=== PATIENT | female | born 1940 | race Caucasian/White ===

== ENCOUNTER → 2017-03-18 | Outpatient (CLI) | payer OTHER ==
[~2017-03-18] MED LIST: ALBUAER19 INH; ASPI81TA25 PO; ATOR-22 PO; BUDE180I INH; CALC600T37 PO; CALCTAB5 PO; FSMD/70 PO; TRAZ100T29 PO
--- NOTE | 2017-03-18 10:21 | DIAGNOSTIC IMAGING REPORT ---
DOUBLE CONTRAST UPPER GI SERIES CLINICAL HISTORY: Status post hernia repair COMPARISON STUDY: Upper GI series May 25, [address] of the abdomen and pelvis June 13, 2016. FLUOROSCOPY TIME: 2.5 minutes. FINDINGS: There are expected findings following repair of a paraesophageal hernia. Note was made of moderate reflux and mild esophageal dysmotility. No extraluminal contrast was identified. Contrast passed freely into the stomach. Irregularity at the gastroesophageal junction is postsurgical. Gastric fold pattern is unremarkable. Mucosal detail was somewhat suboptimal on this exam but unremarkable. Duodenum was normal. IMPRESSION: 1. Expected findings following repair of paraesophageal hernia. Mild irregularity at the gastroesophageal junction is postsurgical. 2. Moderate reflux and mild esophageal dysmotility. Electronically signed by: Shamir Albarado M.D. 03/18/2017 10:20 AM Dictated Date/Time: 03/18/2017 10:17 AM
== END | disposition home or self-care (01) ==
LOC: C.RAD 09:34
PROVIDERS: ATTEND Surgery
DX: Z87.19 Personal history of other diseases of the digestive system (principal); Z98.890 Other specified postprocedural states

== ENCOUNTER 2017-08-29 11:52 | Emergency (ER) | payer OTHER ==
[~2017-08-29] VITALS: Ht 152.4 cm; Wt 73.9 kg
[~2017-08-29 11:52] MED LIST changes: -CALC600T37 PO
[2017-08-29 12:12] VITALS: TEMP 36.8; Ht 152.4 cm; Wt 73.9 kg
--- NOTE | 2017-08-29 12:52 | DIAGNOSTIC IMAGING REPORT ---
R HAND MIN 3 VIEWS ROUTINE CLINICAL HISTORY: right hand pain, concerned for fracture after injury this AM trauma. Pain. COMPARISON: None. DISCUSSION: Generalized degenerative changes throughout. Mild soft tissue edema. No evidence for fracture or dislocation. Cortical margins appear intact. IMPRESSION: 1. Degenerative change. 2. Mild soft tissue edema. 3. No acute bony abnormality. The above report was generated using voice recognition software. It may contain grammatical, syntax or spelling errors. Electronically signed by: Felix Quinn M.D. 08/29/2017 12:51 PM Dictated Date/Time: 08/29/2017 12:50 PM
[2017-08-29] MEDS ORDERED: CALC600T37 PO (13:28)
--- NOTE | 2017-08-29 13:33 | EMERGENCY ROOM VISIT NOTE ---
ED Visit Note First contact with patient: 12:56 I have seen and examined this patient with Amanda Castellon and generally agree with the treatment plan as discussed. Problem List Medical Problems: (1) Asthma Status: Chronic (2) Diverticulitis of intestine with perforation Permanent Comment: 12/03/15 - s/p ex lap with sigmoid colectomy and colostomy placement Status: Chronic (3) Dyslipidemia Status: Chronic (4) GERD (gastroesophageal reflux disease) Status: Chronic (5) HTN (hypertension) Status: Chronic (6) IBS (irritable bowel syndrome) Status: Chronic Surgical Problems: (1) H/O tubal ligation Status: Chronic (2) History of colostomy reversal Permanent Comment: 04/23/16 Status: Chronic (3) S/P repair of paraesophageal hernia Status: Chronic Current/Historical Medications Scheduled Alendronate/Cholecalciferol (Fosamax+D 70MG/2800 Iu), 1 TABLET PO WK Aspirin (Aspir-Low), 81 MG PO QAM Atorvastatin (Lipitor), 20 MG PO HS Budesonide (Inhalation) (Pulmicort Flexhaler), 2 PUFFS INH QAM Calcium (Calcium), 600 MG PO DAILY Trazodone Hcl (Trazodone), 100 MG PO HS Scheduled PRN Albuterol Inhaler (Ventolin Inhaler), 2 PUFFS INH QID PRN for SOB/Wheezing Allergies Coded Allergies: No Known Allergies (Unverified , 12/03/15) Vital Signs Date Time Temp Pulse Resp B/P (MAP) Pulse Ox O2 Delivery O2 Flow Rate FiO2 08/29/17 12:12 36.8 68 16 164/79 94 Room Air Departure Information Referrals Lakshmi Evans M.D. (PCP) Patient Instructions My [facility]
--- NOTE | 2017-08-29 14:18 | EMERGENCY ROOM VISIT NOTE ---
ED Visit Note First contact with patient: 12:56 CHIEF COMPLAINT: Hand injury HISTORY OF PRESENT ILLNESS: This is a 77-year-old female who presents to the emergency department with complaint of right hand pain. She states that she was trying to reach behind a bed frame to pick something up, and bumped the side of her hand and wrist on something come she is not quite sure what caused the injury. She complains of pain, mild swelling, and bruising to the area. The pain is constant, moderate, and worse with any movement of the hand. She is concerned she may have broken something, as she reports a history of osteoporosis. She is right-hand dominant. She denies any previous injury to this hand or wrist in the past. There was no audible cracking sound at the time of the injury. REVIEW OF SYSTEMS: GENERAL: No fever or chills, easy fatigue, loss of appetite, or significant weight change. NEUROLOGICAL: No headache, change in mental status, weakness, numbness, or dizziness.. PMH: Reviewed in the chart. SOCIAL HISTORY: Patient lives at home with her . She denies tobacco use. PHYSICAL EXAM: Vital Signs: Reviewed Nurse's notes. The dorsum and ulnar aspect of the hand is mildly swollen and tender, mild ecchymosis also noted. The skin is intact. Flexion and extension of the fingers is full and strong. Strong wool puller strength. Increased pain in the hand with flexion and extension of the wrist, but no bony tenderness of the wrist. No snuffbox tenderness. Limbs up an okay sign are intact. EMERGENCY DEPARTMENT COURSE: I examined the patient. Differential diagnosis includes contusion, abrasion, hematoma, fracture. An x-ray of the hand revealed soft tissue swelling but no fractures. The patient was updated on results and reassured of no visible fractures. Given her amount of pain, she was placed in a wrist lacer splint for comfort. And she was encouraged to follow closely with her primary care provider or an orthopedic surgeon if her pain does not improve in the next few days. Patient verbalized understanding of all discharge instructions, and was discharged home in stable condition and ambulatory. Medication Reconciliation: I attest that I have personally reviewed the patient' s current medication list. Blood pressure screening: The patient was found to have an elevated blood pressure and was referred to their primary doctor for recheck and further treatment. I discussed the patient with Dr. Meredith, who also independently evaluated the patient and was in agreement with my assessment and plan. Problem List Medical Problems: (1) Asthma Status: Chronic (2) Diverticulitis of intestine with perforation Permanent Comment: 12/03/15 - s/p ex lap with sigmoid colectomy and colostomy placement Status: Chronic (3) Dyslipidemia Status: Chronic (4) GERD (gastroesophageal reflux disease) Status: Chronic (5) HTN (hypertension) Status: Chronic (6) IBS (irritable bowel syndrome) Status: Chronic Surgical Problems: (1) H/O tubal ligation Status: Chronic (2) History of colostomy reversal Permanent Comment: 04/23/16 Status: Chronic (3) S/P repair of paraesophageal hernia Status: Chronic Current/Historical Medications Scheduled Alendronate/Cholecalciferol (Fosamax+D 70MG/2800 Iu), 1 TABLET PO WK Aspirin (Aspir-Low), 81 MG PO QAM Atorvastatin (Lipitor), 20 MG PO HS Budesonide (Inhalation) (Pulmicort Flexhaler), 2 PUFFS INH QAM Calcium (Calcium), 600 MG PO DAILY Trazodone Hcl (Trazodone), 100 MG PO HS Scheduled PRN Albuterol Inhaler (Ventolin Inhaler), 2 PUFFS INH QID PRN for SOB/Wheezing Allergies Coded Allergies: No Known Allergies (Unverified , 12/03/15) Vital Signs Date Time Temp Pulse Resp B/P (MAP) Pulse Ox O2 Delivery O2 Flow Rate FiO2 08/29/17 14:56 58 16 193/81 97 08/29/17 14:46 58 16 193/81 97 Room Air 08/29/17 12:12 36.8 68 16 164/79 94 Room Air Departure Information Impression Primary Impression: Hand contusion Dispostion Home / Self-Care Condition GOOD Referrals Lakshmi Evans M.D. (PCP) Donny Hill D.O. Patient Instructions ED Contusion Hand, My [facility] Additional Instructions Rest the hand and keep it inactive for 2 to 3 days until the pain and swelling subside. Wear the wrist splint for comfort. Apply ice to the area of swelling for the next 2 days to help improve pain and inflammation. Keep the hand elevated as much as possible. Tylenol extra strength 1-2 tablets every 6-8 hours as needed for pain. Do not take more than 3000 mg of Tylenol in 24 hours. Please follow-up with your primary care provider or orthopedic surgeon in the next 4-5 days if your hand pain has not improved. Problem Qualifiers Primary Impression: Hand contusion Encounter type: initial encounter Laterality: right Qualified Codes: S60.221A - Contusion of right hand, initial encounter
[2017-08-29 14:56] VITALS: BP 193/81; PULSE 58; O2SAT 97
== END 2017-08-29 14:57 | disposition home or self-care (01) ==
LOC: C.EDB 11:53 → C.EDD 14:57
DX: S60.221A Contusion of right hand, initial encounter (principal); M81.0 Age-related osteoporosis without current pathological fracture; E78.5 Hyperlipidemia, unspecified; I10 Essential (primary) hypertension; K58.9 Irritable bowel syndrome, unspecified; K21.9 Gastro-esophageal reflux disease without esophagitis; Z79.82 Long term (current) use of aspirin; Z79.899 Other long term (current) drug therapy; Z87.19 Personal history of other diseases of the digestive system; W22.8XXA Striking against or struck by other objects, initial encounter